=== PATIENT | male | born 1960 | race Hispanic/Latino ===

== ENCOUNTER 2020-03-31 10:21 | Inpatient (IN) | payer SELFPAY ==
[2020-03-31 11:21] LABS: Absolute Lymphocytes (CBC) 0.6 K/uL (0.7-4.9); Basophils % 0.2 % (0-1.3); Hematocrit 44.7 % (39.6-49.0); Lymphocytes % 6.9 % (15.3-44.8); MPV 8.7 fL (7.6-11.3); RBC Red Blood Cell Count 4.93 M/uL (4.33-5.43)
[2020-03-31 11:22] LABS: Protime INR 1.15
[2020-03-31 11:35] LABS: ALT/SGPT 20 U/L (12-78); AST/SGOT 32 U/L (15-37); Albumin 2.7 g/dL (3.4-5.0); Alkaline Phosphatase 58 U/L (45-117); BUN Blood Urea Nitrogen 16 mg/dL (7-18); Bicarbonate 27 mmol/L (21-32); Bilirubin Direct 0.2 mg/dL (0-0.2); Bilirubin Total 0.7 mg/dL (0.2-1.0); Glucose Level 204 mg/dL (74-106); NT PRO-BNP 94 pg/mL (<125); Potassium 3.6 mmol/L (3.5-5.1); Protein, Total 7.7 g/dL (6.4-8.2); Sodium Level 139 mmol/L (136-145); Troponin (Emerg Dept Use Only) < 0.02 ng/mL (0.0-0.045)
[2020-03-31] MEDS ORDERED: ALBUTEROL 2.5 MG/3 ML NEB SOL ONE (11:38)
[2020-03-31 12:10] LABS: Blood Morphology Comment NOT SEEN (NOT SEEN); Platelet Estimate ADEQ
--- NOTE | 2020-03-31 12:25 | RAD REPORT ---
EXAM DESCRIPTION: RAD - Chest Single View - 03/31/2020 11:41 am CLINICAL HISTORY: Cough;SOB Chest pain. COMPARISON: CHEST PA AND LAT 2 VIEW dated 09/15/2013 FINDINGS: Portable technique limits examination quality. Bibasilar lung opacities are present, greater on the right, likely representing bibasilar pneumonia. The heart is normal in size. No displaced fractures.
[2020-03-31 12:29] LABS: Arterial Blood Carboxyhemoglob 1.4 % (0-1.5); Blood Gas Oxyhemoglobin 89.3 % (94-97); Blood O2 Saturation 91.2 % (92-98.5)
[2020-03-31] MEDS ORDERED: CEFTRIAXONE/SWI 1gm 1 GM/10 ML SYR ONE (13:01)
--- NOTE | 2020-03-31 13:06 | RAD REPORT ---
EXAM DESCRIPTION: CT - Chest For Pe Angio - 03/31/2020 12:51 pm CLINICAL HISTORY: Chest pain. SOB COMPARISON: No comparisons TECHNIQUE: CT angiogram of the pulmonary arteries was performed with MIP. All CT scans are performed using dose optimization technique as appropriate and may include automated exposure control or mA/KV adjustment according to patient size. FINDINGS: No evidence of pulmonary thromboembolism. No acute aortic finding demonstrated. Bilateral pulmonary opacities are noted likely representing consolidations. Findings are most severe in the right lower lobe. No significant pericardial or pleural fluid. No concerning bony finding. IMPRESSION: No evidence of pulmonary thromboembolism. Bibasilar lung consolidations are present, greater the right, likely representing pneumonia.
--- NOTE | 2020-03-31 13:31 | ER ---
Nurse's Notes [facility] Name: Jay Syed Age: 59 yrs Sex: Male : 1960 Arrival Date: 03/31/2020 Time: 10:25 Bed 20 Private MD: Diagnosis: Coronavirus as the cause of diseases classified elsewhere;Pneumonia, unspecified organism;Hypoxemia;Shortness of breath;Diarrhea, unspecified Presentation: 03/31 10:37 Chief complaint: Patient states: cough and SOB X 3 days, no fever no appetite , iw +diarrhea , was tested for COVID yesterday at [facility] but won't get results for three days. Coronavirus screen: cough unrelated to allergies, diarrhea, difficulty breathing, shortness of breath. Ebola Screen: Patient negative for fever greater than or equal to 101.5 degrees Fahrenheit, and additional compatible Ebola Virus Disease symptoms Patient denies exposure to infectious person. Patient denies travel to an Ebola-affected area in the 21 days before illness onset. No symptoms or risks identified at this time. Initial Sepsis Screen: Does the patient meet any 2 criteria? HR > 90 bpm. No. Patient's initial sepsis screen is negative. Does the patient have a suspected source of infection?. Risk Assessment: Do you want to hurt yourself or someone else? Patient reports no desire to harm self or others. Onset of symptoms was March 28, 2020. 10:37 Method Of Arrival: Ambulatory iw 10:37 Acuity: JANA 2 iw Triage Assessment: 13:19 General: Appears distressed. Respiratory: Onset: The symptoms/episode began/occurred ll1 2-3 days. Respiratory: Airway is patent Trachea midline Respiratory effort is even, labored, Respiratory pattern is symmetrical, tachypnea Breath sounds are diminished bilaterally. the patient has mild shortness of breath. Historical: - Allergies: 10:42 No Known Allergies; iw - Home Meds: 10:42 Metformin Oral [Active]; Metoprolol Tartrate Oral [Active]; iw - PMHx: 10:42 Hypertension; Diabetes - NIDDM; iw - PSHx: 10:42 None; iw - Immunization history:: Adult Immunizations up to date. - Social history:: Smoking status: Patient denies any tobacco usage or history of. Screenin:05 Abuse screen: Denies threats or abuse. Nutritional screening: No deficits noted. ll1 Tuberculosis screening: No symptoms or risk factors identified. Fall Risk IV access (20 points). Gait- Weak (10 pts.). Total [place] Fall Scale indicates Low Risk Score (25-44 pts). Fall prevention measures have been instituted. Side Rails Up X 2 Frequent Obs/Assesments occuring As available Patient and Family Educated on Fall Prevention Program and strategies. Assessment: 11:05 General: Appears distressed, Behavior is calm, cooperative, appropriate for age. Pain: ll1 Complains of pain in chest Quality of pain is described as aching. Neuro: No deficits noted. Cardiovascular: Heart tones S1 S2 Capillary refill < 3 seconds Clubbing of nail beds is absent JVD is absent Patient's skin is warm and dry. Pulses are all present. Rhythm is sinus rhythm. Respiratory: Reports shortness of breath cough that is Airway is patent Trachea midline Respiratory effort is even, labored, Respiratory pattern is symmetrical, tachypnea Breath sounds are diminished bilaterally. the patient has mild shortness of breath. GI: No deficits noted. 12:05 Reassessment: Patient and/or family updated on plan of care and expected duration. Pain ll1 level reassessed. Patient is alert, oriented x 3, equal unlabored respirations, skin warm/dry/pink. 13:05 Reassessment: Patient and/or family updated on plan of care and expected duration. Pain ll1 level reassessed. Patient is alert, oriented x 3, equal unlabored respirations, skin warm/dry/pink. 14:05 Reassessment: Patient and/or family updated on plan of care and expected duration. Pain ll1 level reassessed. Patient is alert, oriented x 3, equal unlabored respirations, skin warm/dry/pink. 15:05 Reassessment: Patient and/or family updated on plan of care and expected duration. Pain ll1 level reassessed. Patient is alert, oriented x 3, equal unlabored respirations, skin warm/dry/pink. Vital Signs: 10:37 BP 142 / 84; Pulse 109; Resp 20 S; Temp 98.3(O); Pulse Ox 92% on R/A; Weight 81.65 kg; iw Height 5 ft. 6 in. (168 cm); 11:23 BP 129 / 74; Pulse 93; Resp 36; Pulse Ox 92% on R/A; ll1 13:20 BP 120 / 78; Pulse 83; Resp 32; Pulse Ox 94% on 2 lpm NC; ll1 13:35 Resp 32; Pulse Ox 95% on 2 lpm NC; ll1 15:11 BP 121 / 72; Pulse 78; Resp 30; Pulse Ox 97% ; ll1 15:20 Temp 97.0; ll1 15:44 Pulse 77; Resp 30; Pulse Ox 97% on 2 lpm NC; Pain 0/10; ll1 10:37 Body Mass Index 28.93 (81.65 kg, 168 cm) iw ED Course: 10:25 Patient arrived in ED. mr 10:41 Triage completed. iw 10:42 Arm band placed on. iw 10:48 Haile Tamayo NP is PHCP. pm1 10:48 Ishan López MD is Attending Physician. pm1 10:50 Inserted saline lock: 20 gauge in right antecubital area, using aseptic technique. ll1 Blood collected. 11:04 Tom Corral, CANDI is Primary Nurse. ll1 11:42 XRAY Chest (1 view) In Process Unspecified. EDMS 12:51 CT Chest For PE Angio In Process Unspecified. EDMS 13:30 Prince Huffman MD is Hospitalizing Provider. pm1 15:18 Patient has correct armband on for positive identification. Bed in low position. Call ll1 light in reach. Side rails up X2. color television console monitor on. Pulse ox on. NIBP on. 15:34 No provider procedures requiring assistance completed. Patient admitted, IV remains in ll1 place. Administered Medications: 11:47 Drug: Albuterol 2.5 mg Route: Inhalation; ll1 12:38 Follow up: Response: No adverse reaction; RASS: Alert and Calm (0) ll1 13:22 Follow up: Response: No adverse reaction; RASS: Alert and Calm (0) ll1 13:30 Drug: Rocephin 1 grams Route: IV; Rate: calculated rate; Site: right antecubital; [facility] 13:37 Follow up: Response: No adverse reaction; RASS: Alert and Calm (0); IV Status: ll1 Completed infusion; IV Intake: 20ml 13:35 Drug: Decadron - Dexamethasone 10 mg Route: IVP; Site: right antecubital; [facility] 13:37 Follow up: Response: No adverse reaction; RASS: Alert and Calm (0) ll1 Intake: 13:37 IV: 20ml; Total: 20ml. ll1 Outcome: 13:31 Decision to Hospitalize by Provider. pm1 15:35 Admitted to ICU accompanied by nurse, via stretcher, room ICU 1, with oxygen, on ll1 monitor, with chart, Report called to CANDI Li in ICU 15:35 Condition: stable 15:35 Instructed on the need for admit, Demonstrated understanding of instructions. 16:00 Patient left the ED. ll1 Signatures: Dispatcher [employer] АННА WileyMarion Kika Bowers RN RN iw Haile Tamayo, INDUSTRIAL TRUCK OPERATOR INDUSTRIAL TRUCK OPERATOR pm1 Tom Corral RN RN ll1 Corrections: (The following items were deleted from the chart) 10:43 10:37 Acuity: JANA 3 iw iw 13:21 11:23 BP 129 / 74; Pulse 93bpm; Resp 20bpm; Pulse Ox 92% RA; ll1 ll1 13:35 11:23 BP 129 / 74; Pulse 93bpm; Resp 26bpm; Pulse Ox 92% RA; ll1 ll1 13:35 13:20 BP 120 / 78; Pulse 83bpm; Resp 26bpm; Pulse Ox 94% 2 lpm Nasal Cannula; ll1 ll1
--- NOTE | 2020-03-31 13:31 | EDPHYS ---
Physician Documentation [facility] Name: Jay Syed Age: 59 yrs Sex: Male : 1960 Arrival Date: 03/31/2020 Time: 10:25 Bed 20 Private MD: ED Physician Ishan López HPI: 03/31 11:03 This 59 yrs old Male presents to ER via Ambulatory with complaints of Cough, pm1 Shortness Of Breath. 11:03 The patient or guardian reports cough, with no sputum, shortness of breath. Onset: The pm1 symptoms/episode began/occurred 3 day(s) ago. Severity of symptoms: in the emergency department the symptoms are actually worse. Modifying factors: The symptoms are alleviated by nothing, the symptoms are aggravated by exertion. Associated signs and symptoms: Pertinent positives: mild diarrhea, Pertinent negatives: chest pain, fever, vomiting. The patient has not experienced similar symptoms in the past. 11:03 The patient has been recently seen at an urgent care, yesterday, for similar pm1 complaints, swabbed for covid-19 and pending result. Historical: - Allergies: 10:42 No Known Allergies; iw - Home Meds: 10:42 Metformin Oral [Active]; Metoprolol Tartrate Oral [Active]; iw - PMHx: 10:42 Hypertension; Diabetes - NIDDM; iw - PSHx: 10:42 None; iw - Immunization history:: Adult Immunizations up to date. - Social history:: Smoking status: Patient denies any tobacco usage or history of. ROS: 11:03 Constitutional: Negative for fever, chills, and weight loss, ENT: Negative for injury, pm1 pain, and discharge, Neck: Negative for injury, pain, and swelling, Cardiovascular: Negative for chest pain, palpitations, and edema. 11:03 Back: Negative for injury and pain, : Negative for injury, bleeding, discharge, and swelling, MS/Extremity: Negative for injury and deformity, Skin: Negative for injury, rash, and discoloration, Neuro: Negative for headache, weakness, numbness, tingling, and seizure. 11:03 Respiratory: Positive for cough, shortness of breath, Negative for wheezing. 11:03 Abdomen/GI: Positive for diarrhea, Negative for abdominal pain, nausea and vomiting. Exam: 11:03 Constitutional: This is a well developed, well nourished patient who is awake, alert, pm1 and in no acute distress. Head/Face: Normocephalic, atraumatic. 11:03 Back: No spinal tenderness. No costovertebral tenderness. Full range of motion. Skin: Warm, dry with normal turgor. Normal color with no rashes, no lesions, and no evidence of cellulitis. MS/ Extremity: Pulses equal, no cyanosis. Neurovascular intact. Full, normal range of motion. 11:03 Cardiovascular: Rate: normal, Rhythm: regular, Pulses: no pulse deficits are appreciated. 11:03 Respiratory: Breath sounds: decreased breath sounds, are located in both bases, Respiratory rate: 32 Tachypnea 11:03 Abdomen/GI: Inspection: abdomen appears normal, Palpation: abdomen is soft and non-tender, in all quadrants. 11:03 Neuro: Exam negative for acute changes, Orientation: is normal, Mentation: is normal, Motor: is normal, moves all fours. Vital Signs: 10:37 BP 142 / 84; Pulse 109; Resp 20 S; Temp 98.3(O); Pulse Ox 92% on R/A; Weight 81.65 kg; iw Height 5 ft. 6 in. (168 cm); 11:23 BP 129 / 74; Pulse 93; Resp 36; Pulse Ox 92% on R/A; ll1 13:20 BP 120 / 78; Pulse 83; Resp 32; Pulse Ox 94% on 2 lpm NC; ll1 13:35 Resp 32; Pulse Ox 95% on 2 lpm NC; ll1 15:11 BP 121 / 72; Pulse 78; Resp 30; Pulse Ox 97% ; ll1 15:20 Temp 97.0; ll1 15:44 Pulse 77; Resp 30; Pulse Ox 97% on 2 lpm NC; Pain 0/10; ll1 10:37 Body Mass Index 28.93 (81.65 kg, 168 cm) iw MDM: 10:48 Patient medically screened. [facility] 13:21 Data reviewed: vital signs. Data interpreted: Pulse oximetry: on room air is 92 %. pm1 Interpretation: borderline. Plan: O2 by NC applied. 13:27 Counseling: I had a detailed discussion with the patient and/or guardian regarding: the pm1 historical points, exam findings, and any diagnostic results supporting the discharge/admit diagnosis, lab results, radiology results, the need for further work-up and treatment in the hospital, Patient with shortness of breath on exertion and rest. Has room air saturation of 92% amd tachypnea. Patient positive for covid, will administer steroids and admit to the hospital for supplemental oxygen treatment . 15:03 ED course: PSI Port = 81. Disposition: Consideration of brief Inpatient Stay. pm1 03/31 10:50 Order name: Basic Metabolic Panel; Complete Time: 11:47 pm1 03/31 10:50 Order name: CBC with Diff; Complete Time: 12:12 pm1 03/31 10:50 Order name: LFT's; Complete Time: 11:47 pm1 03/31 10:50 Order name: Magnesium; Complete Time: 11:47 pm1 03/31 10:50 Order name: NT PRO-BNP; Complete Time: 11:47 pm1 03/31 10:50 Order name: PT-INR; Complete Time: 11:26 pm1 03/31 10:50 Order name: Troponin (emerg Dept Use Only); Complete Time: 11:47 pm1 03/31 10:50 Order name: Flu; Complete Time: 12:05 pm1 03/31 10:50 Order name: Strep; Complete Time: 12:05 pm1 03/31 10:56 Order name: ABG; Complete Time: 12:33 pm1 03/31 10:58 Order name: Procalcitonin; Complete Time: 12:02 pm1 03/31 10:58 Order name: Lactate; Complete Time: 11:47 pm1 03/31 12:05 Order name: D-Dimer; Complete Time: 12:21 pm1 03/31 10:50 Order name: XRAY Chest (1 view); Complete Time: 12:33 pm1 03/31 10:50 Order name: EKG; Complete Time: 10:51 pm1 03/31 10:50 Order name: Cardiac monitoring; Complete Time: 11:47 pm1 03/31 10:50 Order name: EKG - Nurse/Tech; Complete Time: 11:47 pm1 03/31 10:50 Order name: IV Saline Lock; Complete Time: 11:20 pm1 03/31 10:50 Order name: Labs collected and sent; Complete Time: 11:20 pm1 03/31 10:50 Order name: O2 Per Protocol; Complete Time: 11:21 pm1 03/31 10:50 Order name: O2 Sat Monitoring; Complete Time: 11:21 pm1 03/31 12:06 Order name: Throat Culture EDCO 03/31 12:10 Order name: Manual Differential; Complete Time: 12:12 EDMS 03/31 12:20 Order name: CT Chest For PE Angio; Complete Time: 13:21 pm1 03/31 12:34 Order name: Blood Culture Adult (2) pm1 03/31 13:21 Order name: SARS-COV-2 RT PCR; Complete Time: 13:25 EDMS 03/31 10:50 Order name: Droplet/Contact Precautions; Complete Time: 11:20 pm1 Administered Medications: 11:47 Drug: Albuterol 2.5 mg Route: Inhalation; 1 12:38 Follow up: Response: No adverse reaction; RASS: Alert and Calm (0) ll1 13:22 Follow up: Response: No adverse reaction; RASS: Alert and Calm (0) ll1 13:30 Drug: Rocephin 1 grams Route: IV; Rate: calculated rate; Site: right antecubital; 1 13:37 Follow up: Response: No adverse reaction; RASS: Alert and Calm (0); IV Status: ll1 Completed infusion; IV Intake: 20ml 13:35 Drug: Decadron - Dexamethasone 10 mg Route: IVP; Site: right antecubital; 1 13:37 Follow up: Response: No adverse reaction; RASS: Alert and Calm (0) ll1 Disposition: 04/01 08:59 Co-signature as Attending Physician, Ishan López MD I agree with the assessment and natasha plan of care. Disposition: 03/31/20 13:31 Hospitalization ordered by Prince Armida for Observation. Preliminary diagnosis are Coronavirus as the cause of diseases classified elsewhere, Pneumonia, unspecified organism, Hypoxemia, Shortness of breath, Diarrhea, unspecified. - Bed requested for Intensive Care Unit. - Status is Observation. ll1 - Condition is Stable. - Problem is new. - Symptoms have improved. Signatures: Dispatcher [employer] EDCO Cathi Jin RN RN dw Anderson, Corey, MD MD cha Williams, Irene, RN RN iw Marinas, Patrick, MANAGER LIBRARY MANAGER LIBRARY pm1 Tom Corral RN RN ll1 Corrections: (The following items were deleted from the chart) 03/31 12:08 10:51 CORONAVIRUS+.HERONZ ordered. EDMS EDMS 13:31 13:27 Counseling: I had a detailed discussion with the patient and/or guardian pm1 regarding: the historical points, exam findings, and any diagnostic results supporting the discharge/admit diagnosis, lab results, radiology results, the need for further work-up and treatment in the hospital, Patient with shortness of breath on exertion and rest. Has room air saturation of 92%. Patient positive for covid, will administer steroids and admit to the hospital for supplemental oxygen treatment , pm1 14:58 13:31 Hospitalization Ordered by Prince Armida MARIA for Observation. Preliminary dw diagnosis is Coronavirus as the cause of diseases classified elsewhere; Pneumonia, unspecified organism; Hypoxemia; Shortness of breath; Diarrhea, unspecified. Bed requested for Telemetry/MedSurg (observation). Status is Observation. Condition is Stable. Problem is new. Symptoms have improved. pm1 16:00 14:58 03/31/2020 13:31 Hospitalization Ordered by Prince Armida MARIA for Observation. ll1 Preliminary diagnosis is Coronavirus as the cause of diseases classified elsewhere; Pneumonia, unspecified organism; Hypoxemia; Shortness of breath; Diarrhea, unspecified. Bed requested for Intensive Care Unit. Status is Observation. Condition is Stable. Problem is new. Symptoms have improved. dw
[2020-03-31] MEDS ORDERED: dexAMETHasone 4 MG/ML VIAL ONE (13:41)
--- NOTE | 2020-03-31 14:29 | P.HP ---
Certification for Inpatient Patient admitted to: Observation With expected LOS: <2 Midnights Practitioner: I am a practitioner with admitting privileges, knowledge of patient current condition, hospital course, and medical plan of care. Services: Services provided to patient in accordance with Admission requirements found in Title 42 Section 412.3 of the Code of Federal Regulations Patient History Date of Service: 03/31/20 Reason for admission: Shortness of breath History of Present Illness: Patient is a 59-year-old Italian-speaking male with a past medical history of hypertension and type 2 diabetes mellitus who present to the ER with a 3 day history of shortness of breath, dry cough and generalized malaise. He symptoms progress over this period with episodes of diarrhea. Associated symptoms include myalgia, arthralgia. He denies fever. Patient was found to be positive for Corvette 19 while in the ER. Staying in the hospital due to CVA tachypnea with a respiratory rate in the mid 30s. His chest x-ray was concerning for bibasilar consolidations. Physical Examination - Physical Exam General: Mild distress, Other (slightly diaphoretic) HEENT: Atraumatic, Normocephalic, EOMI Neck: Supple Respiratory: Crackles/rales (bibasilar crackles) Cardiovascular: No edema, Normal pulses, Regular rate/rhythm, Normal S1 S2 Gastrointestinal: Normal bowel sounds, Soft and benign, Non-distended, No tenderness Musculoskeletal: No clubbing, No swelling, No contractures, No erythema, No tenderness, No warmth Neurological: Normal speech, Sensation intact, Normal affect - Studies Laboratory Data (last 24 hrs) 03/31/20 11:03: PT 13.5 H, INR 1.15 03/31/20 11:03: WBC 8.9, Hgb 15.1, Hct 44.7, Plt Count 276 03/31/20 11:03: Sodium 139, Potassium 3.6, BUN 16, Creatinine 0.97, Glucose 204 H, Magnesium 2.0, Total Bilirubin 0.7, AST 32, ALT 20, Alkaline Phosphatase 58 Microbiology Data (last 24 hrs): 03/31/20 11:06 Throat Group A Streptococcus Rapid Screen - Final 03/31/20 11:06 Nasopharnyx Influenza Type A Antigen Screen - Final 03/31/20 11:06 Nasopharnyx Influenza Type B Antigen Screen - Final Assessment and Plan - Problems (Diagnosis) (1) COVID-19 Current Visit: Yes Status: Acute (2) Viral pneumonia Current Visit: Yes Status: Acute (3) Bacterial pneumonia Current Visit: Yes Status: Acute (4) Hypertension Current Visit: Yes Status: Acute (5) Type II diabetes mellitus Current Visit: Yes Status: Acute - Advance Directives Does patient have a Living Will: No Does patient have a Durable POA for Healthcare: No Physician Review: Patient Assessed, Agree with Above Assessment and Plan Physician Review Additional Text: Assessment Patient is a 59 year old male with HTN, NIDDM admitted acute respiratory distress. Found to have COVID 19 AND evidence of bibasilar opacities on CXR. He has been persistently tachypneic with HR in the mid 30s while on room air. ABG showed a PaO2 61. Acute respiratory distress COVID 19 Possible superimposed bacterial PNA HTN Type II diabetes mellitus PLAN: Admit under observation with telemetry Start patient on unasyn and continue dexamethasone, vitamin B1, C, D and zinc Follow up blood cultures Will place on famotidine and melatonin as well Start insulin sliding scale Check A1c Resume home dose of metoprolol 50 mg BID if blood pressure tolerates
[2020-03-31] MEDS ORDERED: D50W 25 GM/50 ML SYRINGE/VIAL IV PRN (16:12)
[2020-03-31] MEDS ORDERED: GLUCAGON 1 MG/VIAL IM PRN (16:12)
[2020-03-31] MEDS ORDERED: AMPICILLIN/SULBACT 3 GM in NA CHLORIDE 0.9% 100 ML IVPB SCH (16:12)
[2020-03-31 16:13] VITALS: BMI 29.0
[2020-03-31] MEDS: INSULIN -REGULAR HUMAN 50 UNIT/0.5 ML ML SQ SCH ×2 (16:30→22:17)
[2020-03-31] MEDS: VITAMIN D 1000 UNIT TAB PO SCH (16:48)
[2020-03-31] MEDS: THIAMINE HCL 100 MG TABLET PO SCH (16:48)
[2020-03-31] MEDS: ASCORBIC ACID 500 MG TABLET PO SCH (16:48)
[2020-03-31] MEDS: FAMOTIDINE 20 MG/2 ML VIAL IV SCH ×2 (16:49→20:46)
[2020-03-31] MEDS ORDERED: dexAMETHasone 10 MG/ML VIAL IV SCH (17:00)
[2020-03-31] MEDS ORDERED: FUROSEMIDE 20 MG/ 2ML VIAL IV ONE (20:06)
--- NOTE | 2020-03-31 20:15 | P.CNS ---
Date of Consult: 03/31/20 Reason for Consult: Pneumonia due to martin virus Chief Complaint: Shortness of breath History of Present Illness: Patient is 59 years of age history of hypertension diabetes the admitted with 3 day history of cough shortness of breath became progressive visit episodes of diarrhea and patient has bibasilar infiltrates tested positive for martin virus is doing much better very comfortable Allergies No Known Allergies Allergy (Unverified 03/31/20 16:11) Home Medications: Metformin ER [Glucophage ER*] 2 tab PO BID 03/31/20 Metoprolol Tartrate [Lopressor*] 1 tab PO BID 03/31/20 Tamsulosin [Flomax*] 1 tab PO DAILY 03/31/20 - Past Medical/Surgical History -: NIDDM -: Hypertension - Social History Alcohol use: No CD- Drugs: No Caffeine use: Yes Place of Residence: Home Review of Systems General: Weakness Respiratory: Shortness of Breath Physical Examination Temp Pulse Resp BP Pulse Ox 96.8 F 82 32 H 140/72 95 03/31/20 16:13 03/31/20 16:13 03/31/20 16:13 03/31/20 16:13 03/31/20 16:13 General: Other (Deferred) Laboratory Data (last 24 hrs) 03/31/20 11:03: PT 13.5 H, INR 1.15 03/31/20 11:03: WBC 8.9, Hgb 15.1, Hct 44.7, Plt Count 276 03/31/20 11:03: Sodium 139, Potassium 3.6, BUN 16, Creatinine 0.97, Glucose 204 H, Magnesium 2.0, Total Bilirubin 0.7, AST 32, ALT 20, Alkaline Phosphatase 58 - Problems (1) Pneumonia due to COVID-19 virus Current Visit: Yes Status: Acute Plan: Patient is 59 years of age admitted with pneumonia due to martin virus he is doing better patient's vital signs are stable his 0 95% on 1 L oxygen very comfortable patient was mildly hypoxic on admission continue with present medication check CRP level tomorrow room-air pulse ox possible discharge an prednisone 10 b.i.d. for a 2 weeks add aspirin follow up with me in 2 weeks
[2020-03-31] MEDS ORDERED: Levofloxacin 750mg IV 750 MG/150 ML BAG IV SCH (21:00)
[2020-03-31] MEDS: MELATONIN 3 MG TABLET PO SCH (21:38)
[2020-03-31] MEDS: METHYLPREDNISOLONE 125 MG INJ IV SCH (21:38)
[2020-03-31] MEDS: ASPIRIN 325 MG TAB PO SCH (21:38)
[2020-04-01] MEDS ORDERED: dexAMETHasone 10 MG/ML VIAL IV SCH (06:00)
--- NOTE | 2020-04-01 07:25 | EKG ---
Test Date: 2020-03-31 Test Time: 11:42:50 Combination Welder Apprentice: AMAURY MEASUREMENT RESULTS: Intervals: Rate: 85 CO: 144 QRSD: 78 QT: 336 QTc: 399 [place]: P: 26 CO: 144 QRS: -38 T: 1 INTERPRETIVE STATEMENTS: Normal sinus rhythm Left axis deviation Minimal voltage criteria for LVH, may be normal variant Abnormal ECG No previous ECG available for comparison Electronically Signed On 04-01-20 07:23:27 CITRIX ADMINISTRATOR by Anshul Morfin
[2020-04-01] MEDS: INSULIN -REGULAR HUMAN 50 UNIT/0.5 ML ML SQ SCH ×4 (07:30→20:02)
[2020-04-01] MEDS: FAMOTIDINE 20 MG/2 ML VIAL IV SCH ×2 (09:14→20:03)
[2020-04-01] MEDS: THIAMINE HCL 100 MG TABLET PO SCH (09:14)
[2020-04-01] MEDS: METHYLPREDNISOLONE 125 MG INJ IV SCH ×2 (09:14→20:03)
[2020-04-01] MEDS: VITAMIN D 1000 UNIT TAB PO SCH (09:14)
[2020-04-01] MEDS: ASPIRIN 325 MG TAB PO SCH (09:14)
[2020-04-01] MEDS: ASCORBIC ACID 500 MG TABLET PO SCH (09:14)
--- NOTE | 2020-04-01 11:07 | P.PN ---
Subjective Date of Service: 04/01/20 Chief Complaint: Shortness of breath Patient has tachycardiac and tachypneic. He desaturated to 85% on room air at rest. No fever. Physical Examination - Vital Signs Temperature: 97.9 F Blood Pressure: 142/79 Pulse: 102 Respirations: 32 Pulse Ox (%): 92 - Physical Exam General: Alert, In no apparent distress HEENT: Mucous membr. moist/pink Neck: Supple Respiratory: Crackles/rales (Bilateral lower lobes) Cardiovascular: No edema, Normal S1 S2, Other (Tachycardia) Capillary refill: <2 Seconds Gastrointestinal: Normal bowel sounds, Soft and benign, No tenderness Musculoskeletal: No swelling Integumentary: No rashes, No tenderness/swelling Neurological: Normal strength at 5/5 x4 extr - Studies Laboratory Data (last 24 hrs) 03/31/20 11:03: PT 13.5 H, INR 1.15 03/31/20 11:03: WBC 8.9, Hgb 15.1, Hct 44.7, Plt Count 276 03/31/20 11:03: Sodium 139, Potassium 3.6, BUN 16, Creatinine 0.97, Glucose 204 H, Magnesium 2.0, Total Bilirubin 0.7, AST 32, ALT 20, Alkaline Phosphatase 58 Microbiology Data (last 24 hrs): 03/31/20 11:06 Throat Group A Streptococcus Rapid Screen - Final 03/31/20 11:06 Nasopharnyx Influenza Type A Antigen Screen - Final 03/31/20 11:06 Nasopharnyx Influenza Type B Antigen Screen - Final Assessment And Plan - Current Problems (Diagnosis) (1) Acute respiratory failure with hypoxia Current Visit: Yes Status: Acute (2) COVID-19 Current Visit: Yes Status: Acute (3) Hypertension Current Visit: Yes Status: Acute (4) Pneumonia due to COVID-19 virus Current Visit: Yes Status: Acute (5) Type II diabetes mellitus Current Visit: Yes Status: Acute - Plan Patient is tachypneic and tachycardic today. We will monitor him as inpatient as read continue steroid, aspirin and vitamin supplementation. Arrange for home oxygen. Continue Lopressor for hypertension Insulin sliding scale for glucose management. Metformin is on hold. Case discussed with Dr. Null. CTA thorax: No evidence of PE. No need for anticoagulation at this time.
[2020-04-01] MEDS: METOPROLOL TAR 50 MG TAB PO SCH (20:02)
[2020-04-01] MEDS: MELATONIN 3 MG TABLET PO SCH (20:02)
[2020-04-02 05:26] LABS: Absolute Lymphocytes (CBC) 0.5 K/uL (0.7-4.9); Basophils % 0.2 % (0-1.3); Hematocrit 45.1 % (39.6-49.0); Lymphocytes % 2.6 % (15.3-44.8); MPV 9.2 fL (7.6-11.3); RBC Red Blood Cell Count 4.93 M/uL (4.33-5.43)
[2020-04-02 05:48] LABS: C-Reactive Protein 65.4 mg/L (<3.00); Potassium 4.2 mmol/L (3.5-5.1)
[2020-04-02 06:05] LABS: Platelet Estimate ADEQ
[2020-04-02 06:06] LABS: Blood Morphology Comment NOT SEEN (NOT SEEN)
[2020-04-02] MEDS: THIAMINE HCL 100 MG TABLET PO SCH (08:59)
[2020-04-02] MEDS: ASPIRIN 325 MG TAB PO SCH (08:59)
[2020-04-02] MEDS ORDERED: TAMSULOSIN 0.4 MG SR CAP PO SCH (09:00)
[2020-04-02] MEDS: ASCORBIC ACID 500 MG TABLET PO SCH (09:00)
[2020-04-02] MEDS: METOPROLOL TAR 50 MG TAB PO SCH (09:00)
[2020-04-02] MEDS: VITAMIN D 1000 UNIT TAB PO SCH (09:01)
[2020-04-02] MEDS: FAMOTIDINE 20 MG/2 ML VIAL IV SCH (09:01)
[2020-04-02] MEDS: INSULIN -REGULAR HUMAN 50 UNIT/0.5 ML ML SQ SCH ×2 (09:02→11:56)
[2020-04-02] MEDS: METHYLPREDNISOLONE 125 MG INJ IV SCH (09:02)
--- NOTE | 2020-04-02 12:15 | P.PN ---
Subjective Date of Service: 04/02/20 Chief Complaint: Villalpando virus pneumonia Subjective: Improving (Patient is improving still has some dyspnea and feels fatigued) Physical Examination - Vital Signs Temperature: 98.1 F Blood Pressure: 139/72 Pulse: 60 Respirations: 28 Pulse Ox (%): 94 - Studies Microbiology Data (last 24 hrs): 03/31/20 11:06 Throat Culture & Sensitivity - Final NORMAL UPPER RESPIRATORY ETHAN GROWN. Assessment & Plan - Problems (Diagnosis) (1) Pneumonia due to COVID-19 virus Current Visit: Yes Status: Acute Plan: P patient admitted with dyspnea due to coronal virus infection he has a stable recommend discharge home may need oxygen patient's blood sugar is a little elevated no evidence of pulmonary emboli discharge on prednisone Physician Review: Patient Assessed, Agree with Above Assessment and Plan
[2020-04-02 16:41] VITALS: BP 146/81; TEMP 97.9
[2020-04-02 16:47] VITALS: O2SAT 95
--- NOTE | 2020-04-02 19:51 | P.DS ---
Admission Date: 03/31/20 Discharge Date: 04/02/20 Disposition: ROUTINE DISCHARGE Discharge Condition: GOOD Reason for Admission: Villalpando virus pneumonia Consultations: Pulmonology - Dr. Null Procedures: CXR (03/31/20): Bibasilar lung opacities are present, greater on the right, likely representing bibasilar pneumonia. The heart is normal in size. No displaced fractures. CTA Chest (03/31/20): No evidence of pulmonary thromboembolism. Bibasilar lung consolidations are present, greater the right, likely representing pneumonia. Problem List: Acute respiratory distress secondary to COVID 19 pneumonia HTN Type II diabetes mellitus Brief History of Present Illness: 59 year old male with HTN, NIDDM admitted for acute respiratory distress. Found to have COVID 19 and evidence of bibasilar opacities on CXR. He has been persistently tachypneic with HR in the mid 30s while on room air. ABG showed a PaO2 61. Hospital Course: Pulmonology was consulted. Patient was treated with oxygen and solumedrol. He was fairly stable throughout his hospitalization, he did require 1-2L NC with ambulation. His CRP was noted to be decreasing (141 ->65). Patient felt comfortable enough to continue treatment at home and pulmonology agreed. Patient was discharged with 2 weeks of prednisone 10mg BID, Aspirin, oxygen, and to f/u with Pulmonology in ~2 weeks. He was noted to have hyperglycemia during his hospitalization. A1c: 7.0 on 03/31. He was treated with insulin sliding scale and will resume his home metformin dose on discharge. Vital Signs/Physical Exam: Temp Pulse Resp BP Pulse Ox 97.9 F 73 28 H 146/81 H 95 04/02/20 16:00 04/02/20 16:00 04/02/20 16:00 04/02/20 16:00 04/02/20 16:00 General: Alert, In no apparent distress, Oriented x3 HEENT: Mucous membr. moist/pink, Sclerae nonicteric Neck: Supple Respiratory: Other (non-labored respirations on 1 L NC) Cardiovascular: No edema, Regular rate/rhythm Gastrointestinal: Soft and benign, Non-distended, No tenderness Musculoskeletal: No tenderness Integumentary: No rashes Neurological: Normal speech, Normal affect Laboratory Data at Discharge: WBC 19.0 K/uL (4.3-10.9) H D 04/02/20 04:32 Hgb 15.0 g/dL (13.6-17.9) 04/02/20 04:32 Hct 45.1 % (39.6-49.0) 04/02/20 04:32 Plt Count 404 K/uL (152-406) D 04/02/20 04:32 PT 13.5 SECONDS (9.5-12.5) H 03/31/20 11:03 INR 1.15 03/31/20 11:03 Sodium 143 mmol/L (136-145) 04/02/20 04:32 Potassium 4.2 mmol/L (3.5-5.1) 04/02/20 04:32 BUN 34 mg/dL (7-18) H 04/02/20 04:32 Creatinine 1.05 mg/dL (0.55-1.3) 04/02/20 04:32 Glucose 258 mg/dL (74-106) H 04/02/20 04:32 Magnesium 2.0 mg/dL (1.8-2.4) 03/31/20 11:03 Total Bilirubin 0.7 mg/dL (0.2-1.0) 03/31/20 11:03 AST 32 U/L (15-37) 03/31/20 11:03 ALT 20 U/L (12-78) 03/31/20 11:03 Alkaline Phosphatase 58 U/L (45-117) 03/31/20 11:03 Home Medications: Metformin ER [Glucophage ER*] 2 tab PO BID 03/31/20 Metoprolol Tartrate [Lopressor*] 1 tab PO BID 03/31/20 Tamsulosin [Flomax*] 1 tab PO DAILY 03/31/20 Aspirin Tab [Rafi Aspirin*] 325 mg PO DAILY 30 Days #30 tab 04/02/20 predniSONE [Deltasone*] 10 mg PO BID 14 Days #28 tab 04/02/20 New Medications: Aspirin Tab [Rafi Aspirin*] 325 mg PO DAILY 30 Days #30 tab predniSONE [Deltasone*] 10 mg PO BID 14 Days #28 tab Patient Discharge Instructions: follow up with PCP within 1 week. follow up with Dr. Null in 1-2 weeks - call to schedule appointment Diet: ADA Activity: Ad power Followup: Melvin Null MD [ACTIVE - CAN ADMIT] - NONE,NONE [Primary Care Provider] - Time spent managing pt's care (in minutes): 35
== END 2020-04-02 16:29 | disposition home or self-care (01) | DRG 177 ==
LOC: ER 10:21 → ERHOLD 14:39 → 3RD-ICU 15:38 → OBSVTOIN 16:01
PROVIDERS: ADMIT Internal Medicine; ATTEND Hospitalist
DX: U07.1 COVID-19 (principal); J12.89 Other viral pneumonia; J96.01 Acute respiratory failure with hypoxia; E11.9 Type 2 diabetes mellitus without complications; I10 Essential (primary) hypertension; R00.0 Tachycardia, unspecified; Z79.84 Long term (current) use of oral hypoglycemic drugs; Z79.899 Other long term (current) drug therapy; Z79.82 Long term (current) use of aspirin; Z79.52 Long term (current) use of systemic steroids
CPT/HCPCS: 36415; 71045; 71275; 80048; 80076; 82805; 82947; 83036; 83605; 83735; 83880; 84145; 84484; 85025; 85379; 85610; 86140; 87040; 87070; 87081; 87804; 93005; 96374; 96375; 99285; G0378; J0295; J0696; J1100; J1940; J2930; Q9967; U0003